=== PATIENT | female | born 1995 | race African-American/Black ===

== ENCOUNTER 2016-12-30 17:15 | Emergency (ER) | payer OTHER ==
[2016-12-30 17:24] VITALS: BP 110/78; BMI 20.9
--- NOTE | 2016-12-30 19:00 | DR.GENAD ---
HPI - PCP Primary Care Physician: OSVALDO - Complaint/Symptoms Chief Complaint:: "I HAVE ABOUT 9 BLISTERS ON MY VAGINAL AND THEY ARE VERY PAINFUL.I'M 6 MONTHS " - Source History Provided: Patient - Mode of Arrival Mode of Arrival: Ambulatory - Timing Onset of Chief Complaint: 12/29/16 PMH - PMH Past Medical History: No Past Surgical History: No - Family History History of Family Medical Conditions: No - Social History Does patient currently use any type of tobacco product: No Have you used tobacco products in the last 12 months: No Type of Tobacco Use: None Does any household member use tobacco: No Alcohol Use: None Do you use any recreational Drugs:: No Lives Where: Home - infectious screening In the last 2 months have you had wt loss of >10#?: NO Have you had fever, night sweats or hemotysis?: No Have you traveled outside the country in the last 6 months?: No ROS - Review of Systems Eyes: No Symptoms Reported ENTM: No Symptoms Reported Respiratoy: No Symptoms Reported Cardiovascular: No Symptoms Reported Gastrointestinal/Abdominal: No Symptoms Reported Genitourinary: No Symptoms Reported Neurological: No Symptoms Reported Musculoskeletal: No Symptoms Reported Integumentary: No Symptoms Reported Hematologic/Lymphatic: No Symptoms Reported Endocrine: No Symptoms Reported Psychiatric: No Symptoms Reported All Other Systems: Reviewed and Negative PE - Vital Signs Vitals: Temperature 98.4 F Pulse Rate 93 Respiratory Rate 20 Blood Pressure 110/78 O2 Sat by Pulse Oximetry 100 - General General Appearance: Alert, In No Apparent Distress - Head Head Exam: Normal Inspection, Atraumatic - Eyes Eye exam: Normal Appearance, PERRL, EOMI - ENT ENT Exam: Normal Exam External Ear Exam: Normal External Inspection TM/Canal Exam: Bilateral Normal Nose Exam: Normal Nose Exam Mouth Exam: Normal Inspection Throat Exam: Normal Inspection - Neck Neck Exam: Normal Inspection - Chest Chest Inspection: Normal Inspection - Respiratory Respiratory Exam: Normal Lung Sounds Bilat Respiratory Exam: Bilateral Clear to Auscultation - Cardiovascular Cardiovascular Exam: Regular Rate - Abdominal Exam Abdominal Exam: Normal Inspection Abdominal Tenderness: negative: RUQ, RLQ, LUQ, LLQ, Epigastrium, Suprapubic, Diffuse, Mild, Moderate, Severe, Other - Extremities Extremities Exam: Normal Inspection, Full ROM - Back Back Exam: Normal Inspection, Full ROM - Neurologic Neurological Exam: Alert, Oriented X3, CN II-XII Intact - Psychiatric Psychiatric Exam: Normal Affect - Skin Skin Exam: Warm, Dry, Other (There is a tender non erythematous lesion at 7 0' clock c/w carbuncle) - Diagnosis Discharge Problem: Vulvovaginal pain - Discharge Plan Condition: Stable - Follow ups/Referrals Follow ups/Referrals: ATUL HERMAN [Primary Care Provider] - 3 days - Instructions
[2016-12-30 19:11] LABS: BILIRUBIN,URINE NEGATIVE (NEGATIVE); BLOOD/HEMOGLOBIN,URINE NEGATIVE (NEGATIVE); GLUCOSE, URINE NEGATIVE (NEGATIVE); KETONES,URINE NEGATIVE (NEGATIVE); LEUKOCYTE ESTERASE ,URINE 1+ (NEGATIVE); NITRITES,URINE NEGATIVE (NEGATIVE); PROTEIN,URINE 1+ (NEGATIVE); UROBILINOGEN,URINE 1+ (NORMAL)
[2016-12-30 19:21] LABS: APPEARANCE,URINE CLEAR (CLEAR); BACTERIA,URINE TRACE /HPF (NEGATIVE); COLOR,URINE YELLOW (YELLOW); MUCUS,URINE FEW /HPF (NEGATIVE); RBC,URINE 0-3 /HPF (NEGATIVE); SQUAMOUS EPITHELIAL CELL,UR FEW /HPF (NEGATIVE)
== END 2016-12-30 19:25 | disposition home or self-care (01) ==
LOC: ER 17:15
DX: R10.2 Pelvic and perineal pain (principal)
CPT/HCPCS: 81001; 99282; 99284

== ENCOUNTER 2017-04-07 14:52 | Emergency (ER) | payer OTHER ==
[2017-04-07 14:58] VITALS: BMI 20.9
[2017-04-07 15:31] LABS: BILIRUBIN,URINE NEGATIVE (NEGATIVE); BLOOD/HEMOGLOBIN,URINE NEGATIVE (NEGATIVE); GLUCOSE, URINE NEGATIVE (NEGATIVE); KETONES,URINE NEGATIVE (NEGATIVE); LEUKOCYTE ESTERASE ,URINE 2+ (NEGATIVE); NITRITES,URINE NEGATIVE (NEGATIVE); PROTEIN,URINE 1+ (NEGATIVE); UROBILINOGEN,URINE 1+ (NORMAL)
[2017-04-07 15:43] LABS: APPEARANCE,URINE HAZY (CLEAR); COLOR,URINE YELLOW (YELLOW)
[2017-04-07 15:47] LABS: BACTERIA,URINE TRACE /HPF (NEGATIVE); RBC,URINE NEGATIVE /HPF (NEGATIVE); SQUAMOUS EPITHELIAL CELL,UR MANY /HPF (NEGATIVE)
[2017-04-07 16:19] VITALS: BP 127/84
== END 2017-04-07 16:20 | disposition home or self-care (01) ==
LOC: ER 15:01
DX: O60.03 Preterm labor without delivery, third trimester (principal)
CPT/HCPCS: 81001; 99284

== ENCOUNTER 2017-04-24 08:56 | Inpatient (IN) | payer OTHER ==
[~2017-04-24 08:56] MED LIST: PITOCIN IVP ONE
[2017-04-24] MEDS: D5 1/2 NS 1000 ML 1,000 ML with PITOCIN 20 UNITS IV SCH ×6 (08:56→22:21)
[2017-04-24 09:15] LABS: BASOPHILS % (AUTO) 0.3 % (0.2-1.0); EOSINOPHILS % (AUTO) 0.1 % (0.9-2.9); HEMATOCRIT 24.4 % (36.0-47.0); HEMOGLOBIN 7.9 g/dL (12.0-16.0); LYMPHOCYTES # (AUTO) 1.2 X10^3/uL (1.3-2.9); LYMPHOCYTES % (AUTO) 11.9 % (21.0-51.0); MEAN CORPUSCULAR HEMOGLOBIN 27.1 pg (27.0-34.0); MEAN CORPUSCULAR HGB CONC 32.4 g/dL (33.0-35.0); MEAN CORPUSCULAR VOLUME 83.7 fL (80.0-100.0); MEAN PLATELET VOLUME 7.8 fL (7.4-11.0); MONOCYTES # (AUTO) 0.6 x10^3/uL (0.3-0.8); MONOCYTES % (AUTO) 5.7 % (0.0-13.0); NEUTROPHILS # (AUTO) 8.4 x10^3/uL (2.2-4.8); PLATELET COUNT 201 X10^3/uL (150.0-450.0); RED BLOOD COUNT 2.92 X10^6/uL (3.5-5.4); RED CELL DISTRIBUTION WIDTH 15.2 % (11.6-16.5); WHITE BLOOD COUNT 10.2 X10^3/uL (3.6-10.0)
[2017-04-24 09:24] LABS: BLOOD UREA NITROGEN 8 mg/dL (7-18); CALCIUM 7.7 mg/dL (8.5-10.1); CARBON DIOXIDE 24.3 mmol/L (21-32); CHLORIDE 106 mmol/L (98-107); CREATININE 0.62 mg/dL (0.55-1.02); SODIUM 138 mmol/L (136-145); eGFR BLACK RACES > 60 (>60); eGFR NON BLACK RACES > 60 (>60)
[2017-04-24 09:31] LABS: HYPOCHROMASIA 1+; MICROCYTOSIS 1+; PLATELET MORPHOLOGY COMMENT NORMAL (NORMAL)
[2017-04-24] MEDS ORDERED: D5 IV ONE (09:32)
[2017-04-24] MEDS ORDERED: MOTRIN TAB 800 MG PO ONE (09:32)
[2017-04-24] MEDS ORDERED: 1/2 NS IV ONE (09:32)
[2017-04-24] MEDS ORDERED: PHENERGAN INJ 25 MG IV PRN (09:43)
[2017-04-24 09:47] VITALS: BMI 22.6
[2017-04-24] MEDS: MOTRIN TAB 800 MG PO PRN ×2 (09:47→19:15)
[2017-04-24] MEDS ORDERED: AMBIEN PO PRN (10:45)
[2017-04-24] MEDS ORDERED: DERMOPLAST SPRAY TOP PRN (10:45)
[2017-04-24] MEDS ORDERED: ADACEL TDaP IM ONE (10:45)
[2017-04-24] MEDS ORDERED: MILK OF MAGNESIA PO PRN (10:45)
[2017-04-24] MEDS ORDERED: PHARMACY CONSULT - DOSE _____ XX SCH (11:00)
[2017-04-24] MEDS ORDERED: DEXFERRUM or INFED 25 MG in NS 100 ML IV 100 ML IV NR (11:00)
[2017-04-24] MEDS ORDERED: DEXFERRUM or INFED 975 MG in NS 500 ML IV 500 ML IV ONE (12:00)
[2017-04-24 14:12] LABS: BILIRUBIN,URINE NEGATIVE (NEGATIVE); BLOOD/HEMOGLOBIN,URINE 5+ (NEGATIVE); GLUCOSE, URINE NEGATIVE (NEGATIVE); KETONES,URINE NEGATIVE (NEGATIVE); LEUKOCYTE ESTERASE ,URINE 3+ (NEGATIVE); NITRITES,URINE NEGATIVE (NEGATIVE); PH,URINE 6.5 (5.0 - 8.0); PROTEIN,URINE 3+ (NEGATIVE); UROBILINOGEN,URINE NORMAL (NORMAL)
[2017-04-24 14:18] LABS: APPEARANCE,URINE CLOUDY (CLEAR); BACTERIA,URINE NEGATIVE /HPF (NEGATIVE); COLOR,URINE RED (YELLOW); RBC,URINE TNTC /HPF (NEGATIVE); SQUAMOUS EPITHELIAL CELL,UR NEGATIVE /HPF (NEGATIVE)
[2017-04-24] MEDS ORDERED: D5 1/2 NS 1L W PITOCIN 20 UNITS/L 20 UNITS/1,000 ML BAG IV ONE (21:32)
[2017-04-24] MEDS: ZANTAC PO SCH ×2 (22:22→22:23)
[2017-04-25] MEDS: D5 1/2 NS 1000 ML 1,000 ML with PITOCIN 20 UNITS IV SCH ×4 (03:34→11:41)
[2017-04-25 04:48] LABS: HEMATOCRIT 21.8 % (36.0-47.0); HEMOGLOBIN 7.3 g/dL (12.0-16.0)
[2017-04-25] MEDS ORDERED: PRENATAL PLUS PO SCH (09:00)
[2017-04-25] MEDS: ZANTAC PO SCH (09:55)
--- NOTE | 2017-04-25 10:04 | DR.PREG ---
HPI - PCP Primary Care Physician: rosanna - Chief Complaint Chief Complaint:: cvs SANDRA - Source History Provided: Patient - Mode of Arrival Mode of Arrival: EMS - Timing Onset of Chief Complaint: 04/24/17 PMH - PMH Past Medical History: Yes Past Medical History: Anemia Past Surgical History: No - Family History History of Family Medical Conditions: Yes Family Medical History: Diabetes Mellitus, Cancer, Hypertension - Social History Does patient currently use any type of tobacco product: Yes Have you used tobacco products in the last 12 months: Yes Type of Tobacco Use: Cigarettes Does any household member use tobacco: No Alcohol Use: None Do you use any recreational Drugs:: No Lives With: Family Lives Where: Home - infectious screening In the last 2 months have you had wt loss of >10#?: NO Have you had fever, night sweats or hemotysis?: No Have you traveled outside the country in the last 6 months?: No Isolation: Standard PE - Vital Signs Vitals: Temperature 98.2 F Pulse Rate [Brachial] 101 Pulse Rate 87 Respiratory Rate 20 Blood Pressure [Right Arm] 144/91 Blood Pressure 163/92 O2 Sat by Pulse Oximetry 98 ROR - Labs Reviewed Result Diagrams: 04/25/17 03:40 04/24/17 08:50 Laboratory: WBC 10.2 X10^3/uL (3.6-10.0) H 04/24/17 08:50 RBC 2.92 X10^6/uL (3.5-5.4) L 04/24/17 08:50 Hgb 7.3 g/dL (12.0-16.0) L 04/25/17 03:40 Hct 21.8 % (36.0-47.0) L 04/25/17 03:40 MCV 83.7 fL (80.0-100.0) 04/24/17 08:50 MCH 27.1 pg (27.0-34.0) 04/24/17 08:50 MCHC 32.4 g/dL (33.0-35.0) L 04/24/17 08:50 RDW 15.2 % (11.6-16.5) 04/24/17 08:50 Plt Count 201 X10^3/uL (150.0-450.0) 04/24/17 08:50 Plt Count Comment Adequate (ADEQUATE) 04/24/17 08:50 MPV 7.8 fL (7.4-11.0) 04/24/17 08:50 Neut % 82.0 % (42.0-75.0) H 04/24/17 08:50 Lymph % 11.9 % (21.0-51.0) L 04/24/17 08:50 Ward % 5.7 % (0.0-13.0) 04/24/17 08:50 Eos % 0.1 % (0.9-2.9) L 04/24/17 08:50 Baso % 0.3 % (0.2-1.0) 04/24/17 08:50 Neut # 8.4 x10^3/uL (2.2-4.8) H 04/24/17 08:50 Lymph # 1.2 X10^3/uL (1.3-2.9) L 04/24/17 08:50 Ward # 0.6 x10^3/uL (0.3-0.8) 04/24/17 08:50 Eos # 0.0 x10^3/uL (0.0-0.2) 04/24/17 08:50 Baso # 0.0 X10^3/uL (0.0-0.1) 04/24/17 08:50 Absolute Nucleated RBC 0.1 /100WBC 04/24/17 08:50 Plt Morphology Comment Normal (NORMAL) 04/24/17 08:50 RBC Morphology Abnormal (NORMAL) A 04/24/17 08:50 Hypochromasia 1+ A 04/24/17 08:50 Microcytosis 1+ A 04/24/17 08:50 Sodium 138 mmol/L (136-145) 04/24/17 08:50 Corrected Sodium TNP 04/24/17 08:50 Potassium 3.5 mmol/L (3.5-5.1) 04/24/17 08:50 Chloride 106 mmol/L (98-107) 04/24/17 08:50 Carbon Dioxide 24.3 mmol/L (21-32) 04/24/17 08:50 BUN 8 mg/dL (7-18) 04/24/17 08:50 Creatinine 0.62 mg/dL (0.55-1.02) 04/24/17 08:50 Est GFR (MDRD) Af Amer > 60 (>60) 04/24/17 08:50 Est GFR (MDRD) Non-Af > 60 (>60) 04/24/17 08:50 Glucose 94 mg/dL (65-99) 04/24/17 08:50 Calcium 7.7 mg/dL (8.5-10.1) L 04/24/17 08:50 Specimen Type Clean catch urine 04/24/17 13:59 Urine Color Red (YELLOW) 04/24/17 13:59 Urine Appearance Cloudy (CLEAR) 04/24/17 13:59 Urine pH 6.5 (5.0 - 8.0) 04/24/17 13:59 Ur Specific [place]ier 1.015 (1.000-1.030) 04/24/17 13:59 Urine Protein 3+ (NEGATIVE) 04/24/17 13:59 Urine Glucose (UA) Negative (NEGATIVE) 04/24/17 13:59 Urine Ketones Negative (NEGATIVE) 04/24/17 13:59 Urine Occult Blood 5+ (NEGATIVE) 04/24/17 13:59 Urine Nitrite Negative (NEGATIVE) 04/24/17 13:59 Urine Bilirubin Negative (NEGATIVE) 04/24/17 13:59 Urine Urobilinogen Normal (NORMAL) 04/24/17 13:59 Ur Leukocyte Esterase 3+ (NEGATIVE) 04/24/17 13:59 Urine RBC Tntc /HPF (NEGATIVE) 04/24/17 13:59 Urine WBC 0 /HPF (NEGATIVE) 04/24/17 13:59 Ur Squamous Epith Cells Negative /HPF (NEGATIVE) 04/24/17 13:59 Urine Bacteria Negative /HPF (NEGATIVE) 04/24/17 13:59 Ur Culture Indicated? No/not indicated 04/24/17 13:59 Urine Opiates Screen Negative (NEG=<300) 04/24/17 13:59 Urine Methadone Screen Negative (NEG=<300) 04/24/17 13:59 Ur Barbiturates Screen Negative (NEG=<200) 04/24/17 13:59 Ur Phencyclidine Scrn Negative (NEG=<25) 04/24/17 13:59 Ur Amphetamines Screen Negative (NEG=<1000) 04/24/17 13:59 U Benzodiazepines Scrn Negative (NEG=<200) 04/24/17 13:59 Urine Cocaine Screen Negative (NEG=<300) 04/24/17 13:59 U Marijuana (THC) Screen Negative (NEG=<50) 04/24/17 13:59 RPR Nonreactive (NONREACTIVE) 04/24/17 08:50 Tissue Pathology To follow 04/24/17 11:10 Blood Type O POSITIVE 04/24/17 08:50 Antibody Screen Negative 04/24/17 08:50 - Discharge Plan Disposition: 09 ADMITTED INPATIENT Condition: Stable - Follow ups/Referrals - Instructions
[2017-04-25 15:32] VITALS: BP 149/95
== END 2017-04-25 16:15 | disposition home or self-care (01) | DRG 767 ==
LOC: ER 08:59 → MED/SURG 09:39
PROVIDERS: ADMIT Obstetrics & Gynecology Obstetrics; ATTEND Obstetrics & Gynecology Obstetrics
PROC: 10D17Z9 Manual Extraction of Products of Conception, Retained, Via Natural or Artificial Opening (ICD-10-PCS; principal; 2017-04-24)
PROC: 3E0234Z Introduction of Serum, Toxoid and Vaccine into Muscle, Percutaneous Approach (ICD-10-PCS; 2017-04-24)
DX: O26.893 Other specified pregnancy related conditions, third trimester (principal); Z3A.36 36 weeks gestation of pregnancy; Z23 Encounter for immunization; Z37.0 Single live birth
CPT/HCPCS: 36415; 80048; 80307; 81001; 85014; 85018; 85025; 86592; 86850; 86900; 86901; 96365; 96374; 99282; 99284; A4222; S0197; G0434; J1750; J7042

== ENCOUNTER 2019-02-27 12:33 | Inpatient (IN) ==
[2019-02-27 12:46] VITALS: BMI 21.9
[2019-02-27 13:00] LABS: BILIRUBIN,URINE NEGATIVE (NEGATIVE); BLOOD/HEMOGLOBIN,URINE NEGATIVE (NEGATIVE); GLUCOSE, URINE NEGATIVE (NEGATIVE); KETONES,URINE NEGATIVE (NEGATIVE); LEUKOCYTE ESTERASE ,URINE 3+ (NEGATIVE); NITRITES,URINE NEGATIVE (NEGATIVE); PROTEIN,URINE NEGATIVE (NEGATIVE); UROBILINOGEN,URINE NORMAL (NORMAL)
[2019-02-27 13:01] LABS: APPEARANCE,URINE SLIGHTLY HAZY (CLEAR); COLOR,URINE YELLOW (YELLOW)
[2019-02-27 13:09] LABS: BACTERIA,URINE 1+ /HPF (NEGATIVE); SQUAMOUS EPITHELIAL CELL,UR FEW /HPF (NEGATIVE)
[2019-02-27 13:11] LABS: AMNISURE ROM TEST NO MEMBRANES RUPTURE (NO RUPTURE)
[2019-02-27] MEDS ORDERED: AMPICILLIN VIAL 2 GRAM ONE (13:22)
[2019-02-27] MEDS ORDERED: NS 100 ML IV 100 ML IV ONE (13:22)
[2019-02-27] MEDS ORDERED: D5 1/2 NS 1000 ML 1,000 ML IV ONE ×2 (13:23→18:44)
[2019-02-27 13:43] LABS: BLOOD UREA NITROGEN 8 mg/dL (7-18); CALCIUM 8.5 mg/dL (8.5-10.1); CARBON DIOXIDE 25.8 mmol/L (21-32); CHLORIDE 102 mmol/L (98-107); CREATININE 0.71 mg/dL (0.55-1.02); SODIUM 137 mmol/L (136-145); eGFR NON BLACK RACES > 60 (>60)
[2019-02-27 13:49] LABS: BASOPHILS % (AUTO) 0.1 % (0.2-1.0); EOSINOPHILS % (AUTO) 0.3 % (0.9-2.9); HEMOGLOBIN 8.2 g/dL (12.0-16.0); LYMPHOCYTES # (AUTO) 1.1 X10^3/uL (1.3-2.9); LYMPHOCYTES % (AUTO) 20.1 % (21.0-51.0); MEAN CORPUSCULAR HEMOGLOBIN 26.2 pg (27.0-34.0); MEAN CORPUSCULAR HGB CONC 32.9 g/dL (33.0-35.0); MEAN CORPUSCULAR VOLUME 79.6 fL (80.0-100.0); MEAN PLATELET VOLUME 7.5 fL (7.4-11.0); MONOCYTES # (AUTO) 0.5 x10^3/uL (0.3-0.8); MONOCYTES % (AUTO) 9.1 % (0.0-13.0); NEUTROPHILS # (AUTO) 3.9 x10^3/uL (2.2-4.8); NEUTROPHILS % (AUTO) 70.4 % (42.0-75.0); PLATELET COUNT 205 X10^3/uL (150.0-450.0); RED BLOOD COUNT 3.14 X10^6/uL (3.5-5.4); WHITE BLOOD COUNT 5.5 X10^3/uL (3.6-10.0)
[2019-02-27] MEDS ORDERED: PITOCIN ONE (19:07)
[2019-02-27] MEDS ORDERED: D5 1/2 NS 1L W PITOCIN 20 UNITS/L 20 UNITS/1,000 ML BAG IV ONE (19:07)
[2019-02-27] MEDS ORDERED: D5LR 1L W PITOCIN 10 UNITS/L 10 UNITS/1,000 ML BAG IV ONE (19:29)
[2019-02-27] MEDS ORDERED: PHENERGAN INJ 25 MG IM PRN (20:26)
--- NOTE | 2019-02-27 20:26 | DR.OB ---
OB Quick Note - Assessment/Plan Assessment/Plan: Delivery Note [employer] 02/27/19 at 8:13pm Patient complete and pushing. Head delivered over intact perineum. No nuchal cord. Nose and mouth bulb suctioned. Body delivered over intact perineum. Cord clamped x 2 and cut. handed to attendant. Cord sent for gases. Placenta delivered spontaneously / intact / 3 vessel cord. No CVX / vaginal / perineal tears. Viable male , VTX/OP, wt=7'15" and 5/9, stable to NBN. Mother stable to RR. [id number].
[2019-02-27] MEDS ORDERED: MILK OF MAGNESIA PO PRN (21:42)
[2019-02-27] MEDS ORDERED: DERMOPLAST SPRAY TOP PRN (21:42)
[2019-02-27] MEDS ORDERED: AMBIEN PO PRN (21:42)
[2019-02-27] MEDS ORDERED: ADACEL or BOOSTRIX TDaP VACCINE IM ONE (21:42)
[2019-02-27] MEDS: MOTRIN TAB 800 MG PO PRN (23:05)
[2019-02-27] MEDS: D5 1/2 NS 1000 ML 1,000 ML with PITOCIN 20 UNITS IV SCH ×2 (23:42)
[2019-02-28] MEDS: D5 1/2 NS 1000 ML 1,000 ML with PITOCIN 20 UNITS IV SCH ×2 (04:57)
[2019-02-28 05:26] LABS: HEMATOCRIT 25.3 % (36.0-47.0); HEMOGLOBIN 8.1 g/dL (12.0-16.0)
[2019-02-28] MEDS ORDERED: ADACEL or BOOSTRIX TDaP VACCINE IM ONE (07:12)
[2019-02-28] MEDS: MOTRIN TAB 800 MG PO PRN ×2 (07:29→22:06)
[2019-02-28] MEDS: PRENATAL PLUS PO SCH (08:34)
[2019-02-28] MEDS: FERROUS GLUCONATE PO SCH (16:59)
[2019-03-01] MEDS: FERROUS GLUCONATE PO SCH (06:34)
[2019-03-01] MEDS ORDERED: DEPO-PROVERA CONTRACEPTIVE INJ IM ONE (07:14)
[2019-03-01] MEDS: PRENATAL PLUS PO SCH (08:05)
[2019-03-01 12:22] VITALS: BP 118/67
== END 2019-03-01 13:00 | disposition home or self-care (01) | DRG 807 ==
LOC: ER 12:33 → LD 18:45 → MED/SURG 20:49
PROVIDERS: ADMIT Specialist; ATTEND Specialist
CPT/HCPCS: 36415; 59409; 80048; 80307; 81001; 83020; 83021; 84112; 85014; 85018; 85025; 86592; 86701; 86703; 86850; 86900; 86901; 87081; 87086; 87389; 87491; 87591; 90715; 96365; 99284; 99285; A4216; A4222; S0197; G0434; J0290; J1050; J2590; J7050; S5010

== ENCOUNTER 2020-09-27 06:30 | Inpatient (IN) ==
[2020-09-27] MEDS ORDERED: DIPRIVAN VIAL ONE (06:49)
[2020-09-27] MEDS ORDERED: VERSED ONE (06:49)
[2020-09-27] MEDS ORDERED: BETADINE SOLN ONE (06:59)
[2020-09-27] MEDS ORDERED: D5 1/2 NS 1000 ML 1,000 ML IV ONE (06:59)
[2020-09-27] MEDS ORDERED: PITOCIN ONE (06:59)
[2020-09-27] MEDS ORDERED: D5LR 1L W PITOCIN 10 UNITS/L 10 UNITS/1,000 ML BAG IV ONE (07:00)
[2020-09-27] MEDS ORDERED: D5 1/2 NS 1L W PITOCIN 20 UNITS/L 20 UNITS/1,000 ML BAG IV ONE (07:00)
--- NOTE | 2020-09-27 07:23 | DR.OB ---
OB Quick Note - Assessment/Plan Assessment/Plan: L&D 09/27/20 at 7:15am S-No complaint. O-Afebrile,VSS [id number]=[id number] with good LTV, +accel, no decel CTX=occasional, mild CVX=3cm/50%/0/VTX AROM with clear fluid. IUPC and FSE placed. No vaginal or perineal lesions. A-IUP at 39 0/7 weeks for induction Multiparity desiring permanent sterilization GERD Genital herpes anemia P-Begin pitocin induction Anticipate with PP BTL as desires
[2020-09-27] MEDS ORDERED: STADOL INJ ONE ×2 (07:51→10:32)
[2020-09-27] MEDS: STADOL INJ IVP PRN ×2 (07:52→10:52)
[2020-09-27] MEDS ORDERED: PITOCIN IVP ONE (08:02)
[2020-09-27] MEDS ORDERED: MORPHINE SULFATE INJ 2 MG INJ IVP PRN (08:02)
[2020-09-27] MEDS ORDERED: D5 1/2 NS 1000 ML 1,000 ML IV SCH (08:02)
[2020-09-27] MEDS ORDERED: PHENERGAN INJ 25 MG IM PRN ×3 (08:02→14:01)
[2020-09-27] MEDS ORDERED: D5LR 1L W PITOCIN 10 UNITS/L 10 UNITS/1,000 ML BAG IV PRN (08:02)
[2020-09-27] MEDS ORDERED: NUBAIN INJ 200 MG VIAL MULTIDOSE IVP PRN (08:02)
[2020-09-27] MEDS ORDERED: REGLAN INJ 10 MG VIAL ONE (09:12)
[2020-09-27] MEDS: REGLAN INJ 10 MG VIAL IVP PRN ×2 (09:15→16:45)
[2020-09-27] MEDS ORDERED: FENTANYL INJ 100 mcg ONE (10:51)
[2020-09-27] MEDS ORDERED: LR 1000 ML IV 1,000 ML IV ONE (10:51)
[2020-09-27] MEDS ORDERED: NAROPIN EPIDURAL 0.2% 100 ML ONE (10:52)
--- NOTE | 2020-09-27 12:12 | DR.OB ---
OB Quick Note - Assessment/Plan Assessment/Plan: L&D 09/27/20 at 12:05pm Pitocin=10mu/min. S-No complaint. s/p epidural. O-Afebrile,VSS [id number] with good LTV, +accel, no decel. CTX=q 1 1/2 to 2 min., about 55-65mmHg CVX=8cm/75%/0 A-IUP at 39 0/7 weeks for induction Multiparity P-Cont. pitocin induction Anticipate with PP BTL as desired
[2020-09-27] MEDS ORDERED: XYLOCAINE 1% and EPINEPHRINE 1:100,000 ONE (13:14)
[2020-09-27] MEDS: D5 1/2 NS 1000 ML 1,000 ML with PITOCIN 20 UNITS IV SCH ×4 (13:15→21:14)
[2020-09-27] MEDS ORDERED: LIDOCAINE 2%-EPI 1:200,000 ONE (13:16)
[2020-09-27] MEDS ORDERED: ANCEF 1 GRAM IV PREMIX* 1 G/50 ML BAG IV ONE (13:20)
[2020-09-27] MEDS ORDERED: ZOFRAN INJ 4 MG VIAL IVP PRN (14:01)
[2020-09-27] MEDS ORDERED: REGLAN INJ 10 MG VIAL IVP PRN (14:01)
[2020-09-27] MEDS ORDERED: BENADRYL INJ 50 MG VIAL IVP PRN (14:01)
[2020-09-27] MEDS ORDERED: DILAUDID INJ IVP PRN (14:01)
[2020-09-27] MEDS ORDERED: BARHEMSYS INJ IVP PRN (14:01)
[2020-09-27] MEDS ORDERED: MILK OF MAGNESIA PO PRN ×2 (14:33)
[2020-09-27] MEDS ORDERED: AMBIEN PO PRN ×2 (14:33)
[2020-09-27] MEDS ORDERED: DERMOPLAST PAIN RELIEF SPRAY TOP PRN (14:33)
[2020-09-27] MEDS ORDERED: ADACEL or BOOSTRIX TDaP VACCINE IM ONE (14:33)
[2020-09-27] MEDS ORDERED: MYLICON TAB 80 MG CHEW PO PRN (14:33)
--- NOTE | 2020-09-27 15:25 | DR.OB ---
OB Quick Note - Assessment/Plan Assessment/Plan: Delivery Note [employer] 09/27/20 at 1:09pm Patient complete and pushing. Head delivered over intact perineum. Nose and mouth bulb suctioned. Nuchal cord x 2 noted and reduced. Body delivered over intact perineum. Cord clamped x 2 and cut. handed to attendant. Cord sent for gases. Placenta delivered spontaneously / intact / 3 vessel cord. No CVX / vaginal / perineal tears. Viable male , VTX/OA, wt=8'2" and 9/10, stable to NBN. Mother stable to RR. SFL=[id number].
[2020-09-27] MEDS: PERCOCET TAB 5/325 MG PO PRN ×2 (17:37→23:43)
[2020-09-27] MEDS: MOTRIN TAB 800 MG PO PRN (20:05)
[2020-09-28] MEDS: MOTRIN TAB 800 MG PO PRN ×2 (03:33→15:37)
[2020-09-28] MEDS: D5 1/2 NS 1000 ML 1,000 ML with PITOCIN 20 UNITS IV SCH ×4 (05:26→15:35)
[2020-09-28 05:36] LABS: HEMATOCRIT 23.7 % (36.0-47.0); HEMOGLOBIN 7.6 g/dL (12.0-16.0)
[2020-09-28] MEDS ORDERED: BACTROBAN TOPICAL OINT TOP SCH (06:15)
[2020-09-28] MEDS ORDERED: VALTREX PO SCH (09:00)
[2020-09-28] MEDS ORDERED: PRENATAL PLUS PO SCH (09:00)
[2020-09-28] MEDS ORDERED: PREVACID PO SCH (09:00)
[2020-09-28] MEDS: PERCOCET TAB 5/325 MG PO PRN (09:28)
[2020-09-28 11:54] VITALS: BP 128/64
== END 2020-09-28 16:25 | disposition home or self-care (01) | DRG 798 ==
LOC: LD 06:49 → MED/SURG 14:28
PROVIDERS: ADMIT Specialist; ATTEND Specialist
DX: Z01.812 Encounter for preprocedural laboratory examination; Z01.818 Encounter for other preprocedural examination; O99.013 Anemia complicating pregnancy, third trimester; D50.8 Other iron deficiency anemias; Z87.42 Personal history of other diseases of the female genital tract; Z30.2 Encounter for sterilization; O99.613 Diseases of the digestive system complicating pregnancy, third trimester; Z37.0 Single live birth; Z3A.39 39 weeks gestation of pregnancy